=== PATIENT | male | born 1985 | race African-American/Black ===

== ENCOUNTER 2019-06-20 10:41 | Emergency (ER) | payer MEDICAID, OTHER ==
[~2019-06-20] VITALS: Ht 193 cm; Wt 119.3 kg
[2019-06-20 10:44] VITALS: BP 163/116
[2019-06-20] MEDS ORDERED: KETOROLAC TROMETH 60MG/2ML VIAL IM ONE (11:15)
[2019-06-20] MEDS ORDERED: methylPREDNISolone SOD SUCC 125 MG/2 ML VL IM ONE (11:15)
== END 2019-06-20 12:16 | disposition home or self-care (01) ==
LOC: ER 10:41
DX: M10.042 Idiopathic gout, left hand (principal)
CPT/HCPCS: 96372; 99283; J1885; J2930

== ENCOUNTER 2025-04-01 15:02 | Inpatient (IN) | payer MEDICAID, OTHER ==
[~2025-04-01] VITALS: Ht 180.3 cm; Wt 134.9 kg
--- NOTE | 2025-04-01 16:05 | ED.PDOC ---
History of Present Illness HPI Comments A 39-YEAR-OLD MALE ARRIVED TO THE ER WITH MULTIPLE COMPLAINTS. PATIENT IS COMPLAINING OF DRY MOUTH, UNABLE TO SMELL OR TASTE, UNABLE TO GET AN ERECTION, DIZZINESS, URINARY FREQUENCY, URGENCY AND DIARRHEA. PATIENT STATES THAT THESE SYMPTOMS STARTED ON Sunday03/27/2025 AFTER COMPLETION OF DEXAMETHASONE. HE TOOK 10 DAYS OF THE STEROID MEDICATION DUE TO HIS LEFT KNEE PAIN AND SWELLING. PATIENT DENIES FEVER, SOB, CHEST PAIN, NAUSEA, VOMITING, HEADACHE AND OTHER COMPLAINTS. NO OTHER SYMPTOMS REPORTED AT THIS TIME OF CARE. Chief Complaint: Medical Clearance Time Seen by MD: 15:53 Primary Care Provider: NONE Reviewed Notes: Nurses Notes, Medications, Allergies Allergies: Coded Allergies: Lisinopril (Verified Allergy, Severe, 04/01/25) Home Meds Reported Medications Atenolol (Atenolol) 25 Mg Tab, 1 TAB PO DAILY, #30 TAB 5 Refills 04/02/25 Amlodipine Besylate (Amlodipine Besylate) 10 Mg Tab, 1 TAB PO DAILY, #30 TAB 5 Refills 04/02/25 Information Source: Patient Mode of Arrival: Ambulatory Severity: Moderate Timing: Days Duration: Since onset Prehospital treatment: None Medication Refill: For: Other (DIZZINESS, DRY MOUTH, URINARY FREQUENCY AND URGENCY POST STEROID TAKING ) Past Medical History PAST MEDICAL HISTORY: Gout, HTN Surgical History: Denies all surgeries Family History Family History: Reviewed,noncontributory to illness Social History Smoker: Non-Smoker Alcohol: Denies ETOH Use Drugs: Denies Drug Use Lives In: Home Constitutional: reports: fatigue; denies: chills, diaphoresis, fever, malaise, sweats, weakness, others EENTM: reports: others (DRY MOUTH AND THIRTY ); denies: blurred vision, double vision, ear bleeding, ear discharge, ear drainage, ear pain, ear ringing, eye pain, eye redness, hearing loss, mouth pain, nasal discharge, nose bleeding, nose congestion, nose pain, photophobia, tearing, throat pain, throat swelling, voice changes Respiratory: denies: cough, hemoptysis, orthopnea, SOB at rest, shortness of breath, SOB with excertion, stridor, wheezing, others Cardiovascular: denies: chest pain, dizzy spells, diaphoresis, Dyspnea on exertion, edema, irregular heart beat, left arm pain, lightheadedness, palpitations, PND, syncope, others Gastrointestinal: denies: abdomen distended, abdominal pain, blood streaked bowels, constipated, diarrhea, dysphagia, difficulty swallowing, hematemesis, melena, nausea, poor appetite, poor fluid intake, rectal bleeding, rectal pain, vomiting, others Genitourinary: reports: frequency, urgency; denies: burning, dysuria, flank pain, hematuria, incontinence, penile discharge, penile sore, pain, testicle pain, testicle swelling, others Neurological: reports: dizziness; denies: fainting, headache, left sided numbness, left sided weakness, numbness, paresthesia, pre-existing deficit, right sided numbness, right sided weakness, seizure, speech problems, tingling, tremors, weakness, others Musculoskeletal: denies: back pain, gout, joint pain, joint swelling, muscle pain, muscle stiffness, neck pain, others Integumetry: denies: bruises, change in color, change in hair/nails, dryness, laceration, lesions, lumps, rash, wounds, others Allergic/Immunocompromised: denies: Difficulty Healing, Frequent Infections, Hives, Itching, others Hematologic/Lymphatic: denies: anemia, blood clots, easy bleeding, easy bruisin g, swollen glands, others Endocrine: denies: excessive hunger, excessive sweating, excessive thirst, excessive urination, flushing, intolerance to cold, intolerance to heat, unexplained weight gain, unexplained weight loss, others Psychiatric: denies: anxiety, bipolar disorder, depression, hopeless, panic disorder, schizophrenia, sleepless, suicidal, others All Other Systems: Reviewed and Negative Physical Exam General Appearance: No Apparent Distress, Obese HEENT: Normal ENT Inspection, PERRL/EOMI, Pharynx Normal, TMs Normal Neck: Full Range of Motion, Non-Tender, Normal, Normal Inspection Respiratory: Chest Non-Tender, Lungs Clear, No Accessory Muscle Use, No Respiratory Distress, Normal Breath Sounds Cardiovascular: No Edema, No JVD, No Murmur, No Gallop, Normal Peripheral Pulses, Regular Rate/Rhythm Breast Exam: Deferred Gastrointestinal: No Organomegaly, Non Tender, No Pulsatile Mass, Normal Bowel Sounds, Soft Genitalia: Deferred Pelvic: Deferred Rectal: Deferred Extremities: No calf tenderness, Normal capillary refill, Normal inspection, Normal range of motion, Non-tender, No pedal edema Musculoskeletal : Apperance: Normal Neurologic: Alert, wellness educator II-XII nml as Tested, No Motor Deficits, Normal Affect, Normal Mood, No Sensory Deficits Cerebellar Function: Normal Reflexes: Normal Skin: Dry, Normal Color, Warm Peripheral Pulses: 2+ carotid (R), 2+ carotid (L) Lymphatic: No Adenopathy Was a procedure done? Was a procedure done?: No Differential Dx Considerations may include: HYPERGLYCEMIA, UTI, NEW ONSET DM, ELECTROLYTE IMBALANCE, DEHYDRATION, RENAL INSUFFICIENCY, CKD/CKF, ALLERGIC REACTION, SIDE EFFECT OF MEDICATION X-Ray, Labs, Meds, VS Vital Signs Date Time Temp Pulse Resp B/P (MAP) Pulse Ox O2 Delivery O2 Flow Rate FiO2 04/01/25 18:25 158/113 04/01/25 16:30 87 18 98 Room Air 04/01/25 16:30 87 18 155/103 (120) 98 04/01/25 15:07 98.0 93 13 148/100 95 98.0 Lab Test 04/01/25 17:40 04/01/25 17:00 04/01/25 16:25 04/01/25 16:03 Range/Units POC Glucose 457 *H 535 *H 70-106 mg/dl White Blood Count 7.0 4.4-10.8 10^3/uL Red Blood Count 5.67 4.5-5.90 10^6/uL Hemoglobin 17.4 13.5-17.5 g/dL Hematocrit 49.3 41.0-53.0 % Mean Corpuscular Volume 86.9 80.0-100.0 fL Mean Corpuscular Hemoglobin 30.6 28.0-32.0 pg Mean Corpuscular Hemoglobin Concent 35.2 32.0-36.0 g/dL Red Cell Distribution Width 13.0 11.8-14.3 % Platelet Count 297 140-450 10^3/uL Mean Platelet Volume 10.2 6.9-10.8 fL Neutrophils (%) (Auto) 56.4 37.0-80.0 % Lymphocytes (%) (Auto) 33.3 10.0-50.0 % Monocytes (%) (Auto) 6.9 0.0-12.0 % Eosinophils (%) (Auto) 2.6 0.0-7.0 % Basophils (%) (Auto) 0.8 0.0-2.0 % Neutrophils # (Auto) 3.9 1.6-8.6 10 ^3/uL Lymphocytes # (Auto) 2.3 0.4-5.4 10 ^3/uL Monocytes # (Auto) 0.5 0-1.3 10 ^3/uL Eosinophils # (Auto) 0.2 0-0.8 10 ^3/uL Basophils # (Auto) 0.1 0-0.2 10 ^3/uL Nucleated Red Blood Cells 0.2 % Sodium Level 133 L 136-145 mmol/L Potassium Level 4.6 3.5-5.1 mmol/L Chloride Level 98 98-107 mmol/L Carbon Dioxide Level 21 20-31 mmol/L Anion Gap 14 5-15 Blood Urea Nitrogen 31 H 9-23 mg/dL Creatinine 1.81 H 0.700-1.30 mg/dL Glomerular Filtration Rate Calc 48 >90 mL/min BUN/Creatinine Ratio 17.1 10.0-20.0 Serum Glucose 544 *H 74-106 mg/dL Hemoglobin A1c 11.0 H <5.7 % A1C Calcium Level 10.5 H 8.7-10.4 mg/dL Plasma/Serum Blood Alcohol < 3.0 <10 mg/dL Urine Color Light-yellow Yellow Urine Clarity Clear Clear Urine pH 5.5 5.0-9.0 Urine Specific [place] 1.035 1.001-1.035 Urine Protein 1+ H Negative Urine Ketones 1+ H Negative Urine Blood Negative Negative /uL Urine Nitrite Negative Negative Urine Bilirubin Negative Negative Urine Urobilinogen Normal Negative mg/dL Urine Leukocyte Esterase Negative Negative /uL Urine RBC <1 0 - 3 /hpf Urine Microscopic WBC 1 0-3 /HPF Urine Squamous Epithelial Cells None seen <5 /hpf Urine Bacteria None seen None Seen /hpf Urine Hyaline Casts Few 0 - 2 /lpf Urine Granular Casts Few 0 /lpf Urine Mucus Few None Seen Urine Glucose 4+ H Normal mg/dL Urine Opiates Screen Neg NEGATIVE Urine Fentanyl Screen Neg NEGATIVE Urine Barbiturates Screen Neg NEGATIVE Urine Phencyclidine Screen Neg NEGATIVE Urine Amphetamines Screen Neg NEGATIVE Urine Benzodiazepines Screen Neg NEGATIVE Urine Cocaine Screen Neg NEGATIVE Urine Cannabinoids Screen Neg NEGATIVE Current Medications Medications (Trade) Dose Ordered Sig/Roman Route Start Time Stop Time Status Last Admin Sodium Chloride 2,000 ml @ 1,000 mls/hr Q2H ONCE IV 04/01/25 17:15 04/01/25 19:14 DC 04/01/25 17:34 Insulin Human Regular (InsuLIN R) 10 units ONCE ONCE IV 04/01/25 17:30 04/01/25 17:31 DC 04/01/25 17:44 Amlodipine Besylate (Norvasc Tablet) 10 mg ONCE ONCE PO 04/01/25 18:15 04/01/25 18:16 DC 04/01/25 18:25 X-Ray, Labs, Meds, VS Comment EXTERNAL MEDICAL RECORDS REVIEWED: [NONE] INDEPENDENT HISTORIANS: [NONE] SOCIAL DETERMINANTS OF HEALTH: [NONE] LABS ORDERED: CBC, BMP, URINALYSIS REVIEWED AND INTERPRETED RESULTS: GLUC 363, UGLU 4+ IMAGING ORDERED: NONE TREATMENTS ORDERED: 0.9 NS 2LS, INSULIN 10 UNITS IVP, AMLODIPINE 10MG PO PROCEDURES PERFORMED: NONE CRITICAL CARE TIME: NONE I HAVE DISCUSSED THE PATIENT WITH THE ATTENDING PHYSICIAN DR. FITZPATRICK AND HE AGREES WITH THE PATIENT'S PLAN OF CARE AND DISPOSITION. UPON MY PHYSICAL EXAMINATION, THE PATIENT WAS WELL IN APPEARANCE, BUT STATED HE HAD MULTIPLE COMPLAINTS. LABS WERE FOR THE PATIENT WHICH REVEALED HIS GLUCOSE IS 363 CONSISTENT WITH NEW ONSET DIABETES. DUE TO THE PATIENT'S LAB RESULTS, MEDICAL HISTORY, AND COMPLAINTS, I HAVE DETERMINED THE PATIENT NEEDS TO BE ADMITTED FOR FURTHER TREATMENT AND EVALUATION. THE ON-CALL HOSPITALIST WILL BE CONTACTED FOR ADMISSION OF THIS PATIENT. Time of 1ST Reevaluation: 16:23 Reevaluation 1ST: Unchanged Time of 2ND Reevaluation: 18:04 Reevaluation 2ND: Unchanged Patient Education/Counseling: Diagnosis, Treatment Family Education/Counseling: Diagnosis, Treatment SEPSIS Sepsis Screen Date sepsis recognized/suspect: Apr 01, 2025 Time Sepsis recognized/suspect: 1507 Recent Procedure: No On Antibiotic Therapy: No Respiratory Rate >20: No Heart Rate >90: Yes Temp<36 C (96.8 F) or >38.3 C: No SBP <90 or MAP <65 mmHG: No New Acute Mental Status Change: No Is the patient on CPAP, BIPAP,: No Physician Orders Accucheck (04/01/25 17:00) Heplock Iv (04/01/25 ) Vital Signs Date Time Temp Pulse Resp B/P (MAP) Pulse Ox O2 Delivery O2 Flow Rate FiO2 04/01/25 18:25 158/113 8/13/25 16:30 87 18 98 Room Air 04/01/25 16:30 87 18 155/103 (120) 98 04/01/25 15:07 98.0 93 13 148/100 95 98.0 Laboratory Tests Test 04/01/25 16:25 White Blood Count 7.0 10^3/uL (4.4-10.8) Departure 1 Departure Time of Disposition: 18:04 Impression: Primary Impression: New onset type 2 diabetes mellitus Additional Impression: Chronic kidney disease (CKD) Qualified Codes: N18.31 - Chronic kidney disease, stage 3a Disposition: ADMITTED INPATIENT Condition: Serious Discharged With: Self Critical Care Note Critical Care Time?: No Stability Stability form required: Yes Unstable for transfer: Requires medication, ED Physician Assesment, Possible rapid decline Heart Score Heart Score: Heart Score Response (Comments) Value History N/A 0 EKG N/A 0 Age N/A 0 Risk Factors N/A 0 Troponin N/A 0 Total 0 I personally scribed for JR,YINXIA PA ([email or web address]) on 04/01/25 at 16:05. Electronically submitted by Vincent An ([email or web address]). I personally scribed for JR,YINXIA PA ([email or web address]) on 04/01/25 at 16:11. Electronically submitted by Vincetn An ([email or web address]). I personally scribed for JR,YINXIA PA ([email or web address]) on 04/01/25 at 16:57. Electronically submitted by Vincent An ([email or web address]). I personally scribed for JR,YINXIA PA ([email or web address]) on 04/01/25 at 17:03. Electronically submitted by Vincent An ([email or web address]). I personally scribed for JR,YINXIA PA ([email or web address]) on 04/01/25 at 17:19. Electronically submitted by Vincent An ([email or web address]). I personally scribed for JR,YINXIA PA ([email or web address]) on 04/01/25 at 17:20. Electronically submitted by Vincent An ([email or web address]). I personally scribed for JAMIL FITZPATRICK MD ([email or web address]) on 04/02/25 at 06:45. Electronically submitted by Shubham Villalobos ([email or web address]). SHOSHANA NORRIS Apr 01, 2025 16:05 JAMIL FITZPATRICK MD Apr 02, 2025 06:45
[2025-04-01 16:21] LABS: Urine Protein, UAD 1+ (Negative)
[2025-04-01 16:35] LABS: Amphetamine Screen, Urine Neg (NEGATIVE); Barbiturate Scree,Urine Neg (NEGATIVE); Benzodiazephine Screen, Urine Neg (NEGATIVE); Cannabinoid Screen, Urine Neg (NEGATIVE); Cocaine Screen, Urine Neg (NEGATIVE); Opiate Scree,Urine Neg (NEGATIVE); Phencyclidine Screen, Urine Neg (NEGATIVE)
[2025-04-01 16:49] LABS: Hematocrit 49.3 % (41.0-53.0); Hemoglobin 17.4 g/dL (13.5-17.5); Mean Corpuscular Hemoglobin 30.6 pg (28.0-32.0); Mean Corpuscular Volume 86.9 fL (80.0-100.0); Nucleated Red Blood Cells % 0.2 %
[2025-04-01 16:55] LABS: Carbon Dioxide 21 mmol/L (20-31)
[2025-04-01 16:56] LABS: Anion Gap 14 (5-15)
[2025-04-01 17:02] LABS: BUN/Creatinine Ratio 17.1 (10.0-20.0)
[2025-04-01 17:08] LABS: Blood Urea Nitrogen 31 mg/dL (9-23); Calcium 10.5 mg/dL (8.7-10.4); Chloride 98 mmol/L (98-107); Potassium 4.6 mmol/L (3.5-5.1); Sodium 133 mmol/L (136-145)
[2025-04-01 17:09] LABS: Glucose 544 mg/dL (74-106)
[2025-04-01] MEDS: SODIUM CHLORIDE 0.9% 2,000 ML IV ONE (17:34)
[2025-04-01] MEDS: InsuLIN REG 1unit/0.01ml Soln (100units/ml) IV ONE (17:44)
[2025-04-01] MEDS ORDERED: ONDANSETRON HCL 4 MG/2 ML VIAL IV PRN (19:45)
[2025-04-01] MEDS ORDERED: DEXTROSE (50%) 50ML SYRG IV PRN (19:45)
[2025-04-01] MEDS ORDERED: ACETAMINOPHEN 325 MG TAB PO PRN (19:45)
[2025-04-01] MEDS ORDERED: HYDROcodone-ACET 5/325MG TAB PO PRN (19:45)
[2025-04-01] MEDS ORDERED: TEMAZEPAM 15 MG CAP PO PRN (22:00)
[2025-04-01] MEDS: ACCU-CHEK COMFORT CURVE STRIP VI SCH (22:01)
[2025-04-01] MEDS: InsuLIN REG 1unit/0.01ml Soln (100units/ml) SC SCH (22:02)
[2025-04-01] MEDS: ATORVASTATIN 20 MG TAB PO SCH (22:04)
[2025-04-01] MEDS: CARVEDILOL 12.5 MG TAB PO SCH (22:05)
--- NOTE | 2025-04-01 22:15 | DVHHP2 ---
History of Present Illness Reason for Visit: Urinary frequency History of Present Illness 39-year-old male presents for evaluation of urinary frequency. Patient reports a three day history of symptoms including urinary frequency, urgency, diarrhea, nausea. He states the symptoms started a day after he completed a treatment of dexamethasone for his left knee swelling. He denies history of diabetes mellitus. Past Medical History Hypertension, gout, dyslipidemia Past Surgical History Denies Family History Noncontributory Smoke: No ALCOHOL: none Drugs: None Lives: with Family Review of Systems Review of Systems Review of systems are currently negative otherwise addressed in HPI. Allergies: Coded Allergies: Lisinopril (Verified Allergy, Severe, 04/01/25) Medications Current Medications Medications Dose Ordered Sig/Roman Route Start Time Stop Time Status Last Admin Dose Admin Carvedilol 25 mg Q12HR PO 04/01/25 22:00 04/01/25 22:05 25 MG Losartan Potassium 100 mg DAILY PO 04/02/25 10:00 Allopurinol 100 mg DAILY PO 04/02/25 10:00 Atorvastatin Calcium 20 mg HS PO 04/01/25 22:00 04/01/25 22:04 20 MG Hydrochlorothiazide 25 mg DAILY PO 04/02/25 10:00 Diagnostic Test (Pha) 1 strip IQ4HR 04/01/25 20:00 04/01/25 22:01 1 STRIP Insulin Human Regular IQ4HR SC 04/01/25 20:00 04/01/25 22:02 10 UNITS Dextrose 50 ml UD PRN IV 04/01/25 19:45 Acetaminophen/ Hydrocodone Bitart 1 tab Q4HP PRN PO 04/01/25 19:45 Temazepam 15 mg QHSP PRN PO 04/01/25 22:00 Ondansetron HCl 4 mg Q4HP PRN IV 04/01/25 19:45 Acetaminophen 650 mg Q6HP PRN PO 04/01/25 19:45 Exam Vital Signs Vital Signs Date Time Temp Pulse Resp B/P (MAP) Pulse Ox O2 Delivery O2 Flow Rate FiO2 04/01/25 22:05 94 139/103 04/01/25 21:55 18 96 04/01/25 16:30 Room Air 04/01/25 15:07 98.0 98.0 Exam Gen: 39-year-old male in no apparent distress Skin: Warm, dry, normal color and texture, no rash. HEENT: Normocephalic atraumatic, mucous membranes moist and pink. Neck: Cervical and supraclavicular nodes normal without enlargement, trachea is midline, thyroid gland is normal without masses. Pulmonary: Clear to auscultation and percussion bilaterally. Cardiac: Regular rate and rhythm. No murmur Abdomen: Soft, nontender, nondistended, bowel sounds present all 4 quadrants, no guarding, no rigidity, no organomegaly. Extremities: No cyanosis, clubbing, no edema Neuro: Cranial nerves II through XII grossly intact, normal affect and speech, no focal motor deficits. Labs/Xrays Labs Test 04/01/25 21:53 04/01/25 16:25 04/01/25 16:03 Range/Units POC Glucose 363 H 70-106 mg/dl White Blood Count 7.0 4.4-10.8 10^3/uL Red Blood Count 5.67 4.5-5.90 10^6/uL Hemoglobin 17.4 13.5-17.5 g/dL Hematocrit 49.3 41.0-53.0 % Mean Corpuscular Volume 86.9 80.0-100.0 fL Mean Corpuscular Hemoglobin 30.6 28.0-32.0 pg Mean Corpuscular Hemoglobin Concent 35.2 32.0-36.0 g/dL Red Cell Distribution Width 13.0 11.8-14.3 % Platelet Count 297 140-450 10^3/uL Mean Platelet Volume 10.2 6.9-10.8 fL Neutrophils (%) (Auto) 56.4 37.0-80.0 % Lymphocytes (%) (Auto) 33.3 10.0-50.0 % Monocytes (%) (Auto) 6.9 0.0-12.0 % Eosinophils (%) (Auto) 2.6 0.0-7.0 % Basophils (%) (Auto) 0.8 0.0-2.0 % Neutrophils # (Auto) 3.9 1.6-8.6 10 ^3/uL Lymphocytes # (Auto) 2.3 0.4-5.4 10 ^3/uL Monocytes # (Auto) 0.5 0-1.3 10 ^3/uL Eosinophils # (Auto) 0.2 0-0.8 10 ^3/uL Basophils # (Auto) 0.1 0-0.2 10 ^3/uL Nucleated Red Blood Cells 0.2 % Sodium Level 133 L 136-145 mmol/L Potassium Level 4.6 3.5-5.1 mmol/L Chloride Level 98 98-107 mmol/L Carbon Dioxide Level 21 20-31 mmol/L Anion Gap 14 5-15 Blood Urea Nitrogen 31 H 9-23 mg/dL Creatinine 1.81 H 0.700-1.30 mg/dL Glomerular Filtration Rate Calc 48 >90 mL/min BUN/Creatinine Ratio 17.1 10.0-20.0 Serum Glucose 544 *H 74-106 mg/dL Hemoglobin A1c 11.0 H <5.7 % A1C Calcium Level 10.5 H 8.7-10.4 mg/dL Plasma/Serum Blood Alcohol < 3.0 <10 mg/dL Urine Color Light-yellow Yellow Urine Clarity Clear Clear Urine pH 5.5 5.0-9.0 Urine Specific [place] 1.035 1.001-1.035 Urine Protein 1+ H Negative Urine Ketones 1+ H Negative Urine Blood Negative Negative /uL Urine Nitrite Negative Negative Urine Bilirubin Negative Negative Urine Urobilinogen Normal Negative mg/dL Urine Leukocyte Esterase Negative Negative /uL Urine RBC <1 0 - 3 /hpf Urine Microscopic WBC 1 0-3 /HPF Urine Squamous Epithelial Cells None seen <5 /hpf Urine Bacteria None seen None Seen /hpf Urine Hyaline Casts Few 0 - 2 /lpf Urine Granular Casts Few 0 /lpf Urine Mucus Few None Seen Urine Glucose 4+ H Normal mg/dL Urine Opiates Screen Neg NEGATIVE Urine Fentanyl Screen Neg NEGATIVE Urine Barbiturates Screen Neg NEGATIVE Urine Phencyclidine Screen Neg NEGATIVE Urine Amphetamines Screen Neg NEGATIVE Urine Benzodiazepines Screen Neg NEGATIVE Urine Cocaine Screen Neg NEGATIVE Urine Cannabinoids Screen Neg NEGATIVE SEPSIS Sepsis Screen Date sepsis recognized/suspect: Apr 01, 2025 Time Sepsis recognized/suspect: 1507 Recent Procedure: No On Antibiotic Therapy: No Respiratory Rate >20: No Heart Rate >90: Yes Temp<36 C (96.8 F) or >38.3 C: No SBP <90 or MAP <65 mmHG: No New Acute Mental Status Change: No Is the patient on CPAP, BIPAP,: No Physician Orders Accucheck (04/01/25 17:00) Heplock Iv (04/01/25 ) Carvedilol Tablet (Coreg Tablet) (04/01/25 22:00) Losartan Tablet (Cozaar Tablet) (04/02/25 10:00) Allopurinol Tablet (Zyloprim Tablet) (04/02/25 10:00) Atorvastatin (Lipitor) (04/01/25 22:00) Hydrochlorothiazide Tablet (Hydrochlorot (04/02/25 10:00) Basic Metabolic Panel (04/02/25 04:00) Glucose Blood (Accu-Chek Comfort Curve T (04/01/25 20:00) Insulin R (Human) (Insulin R) (04/01/25 20:00) Dextrose 50% Syringe (04/01/25 19:45) Admit (04/01/25 19:33) Hydrocodone-Acet 5/325mg Tab ([place] 5/32 (04/01/25 19:45) Temazepam (Restoril) (04/01/25 22:00) Ondansetron Hcl (Zofran) (04/01/25 19:45) Cardiac Diet-2gna,Lofat,Lochol (04/02/25 Breakfast) Condition: Stable (04/01/25 19:33) Acetaminophen Tablet (Tylenol Tablet) (04/01/25 19:45) Bedrest With Bathroom Privileg (04/01/25 19:33) *Rn Dyehouse Worker Referral (04/01/25 19:33) Vital Signs Date Time Temp Pulse Resp B/P (MAP) Pulse Ox O2 Delivery O2 Flow Rate FiO2 04/01/25 22:05 94 139/103 04/01/25 21:55 91 18 139/103 (115) 96 04/01/25 20:14 84 14 143/84 (103) 98 04/01/25 18:25 158/113 04/01/25 16:30 87 18 98 Room Air 04/01/25 16:30 87 18 155/103 (120) 98 04/01/25 15:07 98.0 93 13 148/100 95 98.0 Laboratory Tests Test 04/01/25 16:25 White Blood Count 7.0 10^3/uL (4.4-10.8) Medications Medications Dose Ordered Sig/Roman Route Start Time Stop Time Status Last Admin Dose Admin Amlodipine Besylate 10 mg ONCE ONCE PO 04/01/25 18:15 04/01/25 18:16 DC 04/01/25 18:25 10 MG Atorvastatin Calcium 20 mg HS PO 04/01/25 22:00 04/01/25 22:04 20 MG Carvedilol 25 mg Q12HR PO 04/01/25 22:00 04/01/25 22:05 25 MG Diagnostic Test (Pha) 1 strip IQ4HR 04/01/25 20:00 04/01/25 22:01 1 STRIP Insulin Human Regular IQ4HR SC 04/01/25 20:00 04/01/25 22:02 10 UNITS Insulin Human Regular 10 units ONCE ONCE IV 04/01/25 17:30 04/01/25 17:31 DC 04/01/25 17:44 10 UNITS Sodium Chloride 2,000 ml @ 1,000 mls/hr Q2H ONCE IV 04/01/25 17:15 04/01/25 19:14 DC 04/01/25 17:34 1,000 MLS/HR Assessment/Plan Assessment/Plan Assessment New onset diabetes mellitus, possibly dexamethasone induced Acute kidney injury Hypertension Plan Admit the patient to [facility] [place] to the hospitalist Q.4 hour Accu-Cheks with mild coverage Resume home medications Continue treatment per orders. Plan discussed with: Patient My Orders Orders - DENISE BUENO Procedure Category Date Status Time Carvedilol Tablet PHA 04/01/25 In Process (Coreg Tablet) 22:00 Losartan Tablet PHA 04/02/25 In Process (Cozaar Tablet) 10:00 Allopurinol Tablet PHA 04/02/25 In Process (Zyloprim Tablet) 10:00 Atorvastatin (Lipitor) PHA 04/01/25 In Process 22:00 Hydrochlorothiazide PHA 04/02/25 In Process Tablet (Hydrochlorot 10:00 Basic Metabolic Panel LAB 04/02/25 Verified 04:00 Glucose Blood PHA 04/01/25 In Process (Accu-Chek Comfort 20:00 Insulin R (Human) PHA 04/01/25 In Process (Insulin R) 20:00 Dextrose 50% Syringe PHA 04/01/25 In Process 19:45 Admit ADMIT 04/01/25 Transmitted 19:33 Hydrocodone-Acet PHA 04/01/25 In Process 5/325mg Tab ([place] 19:45 Temazepam (Restoril) PHA 04/01/25 In Process 22:00 Ondansetron Hcl PHA 04/01/25 In Process (Zofran) 19:45 Cardiac DIET 04/02/25 Transmitted Diet-2gna,Lofat,Lochol Breakfast Condition: Stable DEANGELO 04/01/25 In Process 19:33 Acetaminophen Tablet PHA 04/01/25 In Process (Tylenol Tablet) 19:45 Bedrest With Bathroom DEANGELO 04/01/25 In Process Privileg 19:33 *Rn Dyehouse Worker REFER 04/01/25 Transmitted Referral 19:33 Date of Service: Apr 01, 2025 Billing Provider: DENISE BUENO Common Visit Codes: [id number] INP/OBS CARE (MOD) DENISE BUENO Apr 01, 2025 22:14
[2025-04-01 23:42] VITALS: O2SAT 98
[2025-04-02] VITALS (11 sets, daily range): BP systolic 126–142; BP diastolic 72–101; PULSE 76–102; RESP 16–20; TEMP 97.5–98.3; O2SAT 94–100
[2025-04-02] MEDS: InsuLIN REG 1unit/0.01ml Soln (100units/ml) SC SCH (02:03)
[2025-04-02] MEDS: ACCU-CHEK COMFORT CURVE STRIP VI SCH (02:05)
[2025-04-02] MEDS ORDERED: ATEN-60 PO (03:56)
[2025-04-02] MEDS ORDERED: AMLO1TAB23 PO (03:56)
[2025-04-02 06:16] LABS: Chloride 103 mmol/L (98-107); Potassium 3.8 mmol/L (3.5-5.1)
[2025-04-02 06:17] LABS: Anion Gap 13 (5-15); Calcium 9.5 mg/dL (8.7-10.4)
[2025-04-02 06:22] LABS: BUN/Creatinine Ratio 18.3 (10.0-20.0); Blood Urea Nitrogen 22 mg/dL (9-23)
[2025-04-02 06:24] LABS: Carbon Dioxide 20 mmol/L (20-31); Glucose 327 mg/dL (74-106); Sodium 136 mmol/L (136-145)
[2025-04-02] MEDS: LOSARTAN POTASSIUM 50 MG TAB PO SCH (09:37)
[2025-04-02] MEDS: hydroCHLOROthiazide 25 MG TAB PO SCH (09:37)
[2025-04-02] MEDS: ALLOPURINOL 100 MG TAB PO SCH (09:37)
[2025-04-02] MEDS: INSULIN LANTUS (GLARGINE) 1 /0.01ml (100units/ml) SC SCH (14:49)
--- NOTE | 2025-04-02 15:58 | DVHPN2 ---
Subjective Patient was seen and evaluated by me. Patient was taken dexamethasone 6 mg twice a day for left knee swelling which is resolved. Patient is started having urinary symptoms including increased N/C increasing thirst and increasing hunger found to have new onset of diabetes mellitus type 2. 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 no motor deficit Medications Current Medications Medications Dose Ordered Sig/Roman Route Start Time Stop Time Status Last Admin Dose Admin Carvedilol 25 mg Q12HR PO 04/01/25 22:00 04/02/25 09:38 25 MG Losartan Potassium 100 mg DAILY PO 04/02/25 10:00 04/02/25 09:37 100 MG Allopurinol 100 mg DAILY PO 04/02/25 10:00 04/02/25 09:37 100 MG Atorvastatin Calcium 20 mg HS PO 04/01/25 22:00 04/01/25 22:04 20 MG Hydrochlorothiazide 25 mg DAILY PO 04/02/25 10:00 04/02/25 09:37 25 MG Dextrose 50 ml UD PRN IV 04/01/25 19:45 Acetaminophen/ Hydrocodone Bitart 1 tab Q4HP PRN PO 04/01/25 19:45 Temazepam 15 mg QHSP PRN PO 04/01/25 22:00 Ondansetron HCl 4 mg Q4HP PRN IV 04/01/25 19:45 Acetaminophen 650 mg Q6HP PRN PO 04/01/25 19:45 Diagnostic Test (Pha) 1 strip Q4H 04/02/25 02:00 04/02/25 14:25 1 STRIP Insulin Human Regular Q4H SC 04/02/25 02:00 04/02/25 14:27 6 UNITS Insulin Glargine 20 units BID@0700,2200 SC 04/02/25 12:30 04/02/25 14:49 20 UNITS Laboratory Results Laboratory Tests 04/01/25 16:25 04/02/25 05:28 Chemistry Test 04/01/25 16:25 04/02/25 05:28 Calcium Level 10.5 mg/dL (8.7-10.4) H 9.5 mg/dL (8.7-10.4) HgA1c, TSH Test 04/01/25 16:25 Hemoglobin A1c 11.0 % A1C (<5.7) H Urinalysis Test 04/01/25 16:03 Urine Color Light-yellow (Yellow) Urine Clarity Clear (Clear) Urine pH 5.5 (5.0-9.0) Urine Specific [place] 1.035 (1.001-1.035) Urine Protein 1+ (Negative) H Urine Ketones 1+ (Negative) H Urine Blood Negative /uL (Negative) Urine Nitrite Negative (Negative) Urine Bilirubin Negative (Negative) Urine Urobilinogen Normal mg/dL (Negative) Urine Leukocyte Esterase Negative /uL (Negative) Urine RBC <1 /hpf (0 - 3) Urine Microscopic WBC 1 /HPF (0-3) Urine Squamous Epithelial Cells None seen /hpf (<5) Urine Bacteria None seen /hpf (None Seen) Urine Hyaline Casts Few /lpf (0 - 2) Urine Granular Casts Few /lpf (0) Urine Mucus Few (None Seen) Urine Glucose 4+ mg/dL (Normal) H Assessment/Plan Assessment/Plan 39-year-old male with a past medical history history of hypertension dyslipidemia and gout presented to the hospital with the increasing urinary frequency, increased thirst increased hunger found to have 1. New onset of diabetes mellitus type 2 with a hemoglobin A1c>11. 2. Hypertension 3. Dyslipidemia 4. History of gout 5. Recent history of left knee trauma / swelling was on dexamethasone -diabetic education, insulin sliding scale, start long-acting insulin -discharge plan in next 24 hours. Plan discussed with: Patient My Orders Orders - LULU CONTRERAS MD Procedure Category Date Status Time Insulin Lantus PHA 04/02/25 In Process (Glargine) (Lantus) 12:30 Date of Service: Apr 02, 2025 Billing Provider: LULU CONTRERAS MD Common Visit Codes: [id number] INP/OBS CARE(MOD) LULU CONTRERAS MD Apr 02, 2025 15:58
[2025-04-03 05:00] VITALS: BP 119/79; PULSE 72; RESP 20; TEMP 97.6; O2SAT 99
[2025-04-03 08:00] VITALS: RESP 18
[2025-04-03 09:00] VITALS: BP 136/105; PULSE 73; RESP 16; TEMP 97.3; O2SAT 99
[2025-04-03 13:00] VITALS: BP 115/82; PULSE 66; RESP 18; TEMP 98; O2SAT 99
[2025-04-03] MEDS ORDERED: LOSA-534 PO (14:04)
[2025-04-03] MEDS ORDERED: LANC-347 XX (14:04)
[2025-04-03] MEDS ORDERED: BLOO1KIT60 XX (14:04)
[2025-04-03] MEDS ORDERED: HYDR25TA5 PO (14:04)
[2025-04-03] MEDS ORDERED: INSLANTI SC (14:04)
[2025-04-03] MEDS ORDERED: METF-370 PO (14:04)
[2025-04-03] MEDS ORDERED: SITA50TA PO (14:04)
[2025-04-03] MEDS ORDERED: INSU-567 XX (14:04)
--- NOTE | 2025-04-03 14:07 | DVHDS2 ---
Discharge Summary Date of Admission Apr 01, 2025 at 19:33 Date of Discharge: Apr 03, 2025 Labs/Diagnostic Data: Laboratory Results Test 04/03/25 09:02 04/02/25 05:28 04/01/25 16:25 04/01/25 16:03 POC Glucose 280 mg/dl (70-106) Sodium Level 136 mmol/L (136-145) Potassium Level 3.8 mmol/L (3.5-5.1) Chloride Level 103 mmol/L (98-107) Carbon Dioxide Level 20 mmol/L (20-31) Anion Gap 13 (5-15) Blood Urea Nitrogen 22 mg/dL (9-23) Creatinine 1.20 mg/dL (0.700-1.30) Glomerular Filtration Rate Calc 78 mL/min (>90) BUN/Creatinine Ratio 18.3 (10.0-20.0) Serum Glucose 327 mg/dL (74-106) Calcium Level 9.5 mg/dL (8.7-10.4) White Blood Count 7.0 10^3/uL (4.4-10.8) Red Blood Count 5.67 10^6/uL (4.5-5.90) Hemoglobin 17.4 g/dL (13.5-17.5) Hematocrit 49.3 % (41.0-53.0) Mean Corpuscular Volume 86.9 fL (80.0-100.0) Mean Corpuscular Hemoglobin 30.6 pg (28.0-32.0) Mean Corpuscular Hemoglobin Concent 35.2 g/dL (32.0-36.0) Red Cell Distribution Width 13.0 % (11.8-14.3) Platelet Count 297 10^3/uL (140-450) Mean Platelet Volume 10.2 fL (6.9-10.8) Neutrophils (%) (Auto) 56.4 % (37.0-80.0) Lymphocytes (%) (Auto) 33.3 % (10.0-50.0) Monocytes (%) (Auto) 6.9 % (0.0-12.0) Eosinophils (%) (Auto) 2.6 % (0.0-7.0) Basophils (%) (Auto) 0.8 % (0.0-2.0) Neutrophils # (Auto) 3.9 10 ^3/uL (1.6-8.6) Lymphocytes # (Auto) 2.3 10 ^3/uL (0.4-5.4) Monocytes # (Auto) 0.5 10 ^3/uL (0-1.3) Eosinophils # (Auto) 0.2 10 ^3/uL (0-0.8) Basophils # (Auto) 0.1 10 ^3/uL (0-0.2) Nucleated Red Blood Cells 0.2 % Hemoglobin A1c 11.0 % A1C (<5.7) Plasma/Serum Blood Alcohol < 3.0 mg/dL (<10) Urine Color Light-yellow (Yellow) Urine Clarity Clear (Clear) Urine pH 5.5 (5.0-9.0) Urine Specific [place] 1.035 (1.001-1.035) Urine Protein 1+ (Negative) Urine Ketones 1+ (Negative) Urine Blood Negative /uL (Negative) Urine Nitrite Negative (Negative) Urine Bilirubin Negative (Negative) Urine Urobilinogen Normal mg/dL (Negative) Urine Leukocyte Esterase Negative /uL (Negative) Urine RBC <1 /hpf (0 - 3) Urine Microscopic WBC 1 /HPF (0-3) Urine Squamous Epithelial Cells None seen /hpf (<5) Urine Bacteria None seen /hpf (None Seen) Urine Hyaline Casts Few /lpf (0 - 2) Urine Granular Casts Few /lpf (0) Urine Mucus Few (None Seen) Urine Glucose 4+ mg/dL (Normal) Urine Opiates Screen Neg (NEGATIVE) Urine Fentanyl Screen Neg (NEGATIVE) Urine Barbiturates Screen Neg (NEGATIVE) Urine Phencyclidine Screen Neg (NEGATIVE) Urine Amphetamines Screen Neg (NEGATIVE) Urine Benzodiazepines Screen Neg (NEGATIVE) Urine Cocaine Screen Neg (NEGATIVE) Urine Cannabinoids Screen Neg (NEGATIVE) Other Laboratory Tests 04/02/25 05:28 04/01/25 16:25 Brief Hx & Hospital Course: 39-year-old male with a past medical history history of hypertension dyslipidemia and gout presented to the hospital with the increasing urinary frequency, increased thirst increased hunger found to have new onset of diabetes mellitus type 2 with a hemoglobin A1c more than 11. Patient was eventually started on insulin diabetic education was given. Patient is being discharged under stable condition with close follow up as an outpatient with the PCP. Condition at Discharge: Stable Final Diagnosis/Problems List 39-year-old male with a past medical history history of hypertension dyslipidemia and gout presented to the hospital with the increasing urinary frequency, increased thirst increased hunger found to have 1. New onset of diabetes mellitus type 2 with a hemoglobin A1c>11. 2. Hypertension 3. Dyslipidemia 4. History of gout 5. Recent history of left knee trauma / swelling was on dexamethasone Discharge Disposition: Home SNF Discharge Will this Physician continue t: No Discharge Instruct/Medications Diet: Cardiac 2g Na,low cholest Diet comment: 2000 ADA diet Activity: No Restrictions, As Tolerated Follow Up/Referral: Follow up with the PCP in one week's with a repeat BMP as patient is started on losartan and hydrochlorothiazide. Follow up with the endocrinology Dr. staton in 1-2 weeks - Medications: Insulin Lantus and Januvia as prescribed Hydrochlorothiazide, losartan New Medications: Blood Glucose Monitoring Suppl (D-Care Glucometer Kit/Glu W/Device) 1 Kit Kit KIT XX, #1 Insulin Syringe/Needle U-100 ([employer]ocate Insulin Syringe/) 0.5 Mg/31 G Mis MG XX BID, #60 Lancets (Freestyle Lancets) Lancets Mis BOX XX, #1 Metformin Hydrochloride (Metformin Hcl) 500 Mg Tab 1 TAB PO BID, #60 TAB 3 Refills Sitagliptin Phosphate (Januvia) 50 Mg Tab 1 TAB PO DAILY, #30 TAB 5 Refills Hctz (Hydrochlorothiazide) 25 Mg Tab 25 MG PO DAILY for 30 Days, #30 TAB Insulin Glargine (Lantus) 100 Unit/Ml Inj 20 UNITS SC BID@0700,2200 for 30 Days, #30 INJ Losartan Potassium (Losartan Potassium) 50 Mg Tab 100 MG PO DAILY for 30 Days, #60 TAB Continued Medications: Atenolol (Atenolol) 25 Mg Tab 1 TAB PO DAILY, #30 TAB 5 Refills Discontinued Medications: Amlodipine Besylate (Amlodipine Besylate) 10 Mg Tab 1 TAB PO DAILY, #30 TAB 5 Refills Scheduled Atenolol (Atenolol), 1 TAB PO DAILY, (Reported) Hctz (Hydrochlorothiazide), 25 MG PO DAILY Insulin Glargine (Lantus), 20 UNITS SC BID@0700,2200 Losartan Potassium (Losartan Potassium), 100 MG PO DAILY Metformin Hydrochloride (Metformin Hcl), 1 TAB PO BID Sitagliptin Phosphate (Januvia), 1 TAB PO DAILY Discontinued Medications Amlodipine Besylate (Amlodipine Besylate), 1 TAB PO DAILY, (Reported) Durable Medical Equipment Blood Glucose Monitoring Suppl (D-Care Glucometer Kit/Glu W/Device), KIT XX, (DME) Insulin Syringe/Needle U-100 ([employer] Insulin Syringe/), MG XX BID, (DME) Lancets (Freestyle Lancets), BOX XX, (DME) Discharge Statement: "Patient was advised to return to the ER or call 911 if any headaches, dizziness, shortness of breath, chest pain, abdominal pain, bleeding, fevers, or worsening of medical condition. Patient was counseled about treatment plan, medications, possible side effects, patientverbalized understanding. All questions were answered to the best of my ability. This discharge took greater then 30 minutes in planning, reviewing documentation, counseling the patient, and discussing with other team members." ASSESSMENT ASSESSMENT Assessment 39-year-old male with a past medical history history of hypertension dyslipidemia and gout presented to the hospital with the increasing urinary frequency, increased thirst increased hunger found to have 1. New onset of diabetes mellitus type 2 with a hemoglobin A1c>11. 2. Hypertension 3. Dyslipidemia 4. History of gout 5. Recent history of left knee trauma / swelling was on dexamethasone Date of Service: Apr 03, 2025 Billing Provider: LULU CONTRERAS MD Common Visit Codes: 19044-AJL/OBS DISCH DAY >30min LULU CONTRERAS MD Apr 03, 2025 14:07
[2025-04-03 16:40] VITALS: BP 128/84; PULSE 72; RESP 17; TEMP 98.2; O2SAT 100
== END 2025-04-03 16:40 | disposition home or self-care (01) | DRG 420 ==
LOC: ER 15:02 → OVERFLOW 19:33 → CENTRAL 04-02 11:50
PROVIDERS: ADMIT Hospitalist; ATTEND Hospitalist
DX: E11.00 Type 2 diabetes mellitus with hyperosmolarity without nonketotic hyperglycemic-hyperosmolar coma (NKHHC) (principal); N17.0 Acute kidney failure with tubular necrosis; E11.22 Type 2 diabetes mellitus with diabetic chronic kidney disease; N18.9 Chronic kidney disease, unspecified; I12.9 Hypertensive chronic kidney disease with stage 1 through stage 4 chronic kidney disease, or unspecified chronic kidney disease; E78.5 Hyperlipidemia, unspecified; Z88.8 Allergy status to other drugs, medicaments and biological substances
CPT/HCPCS: 36415; 80048; 80307; 80320; 81001; 82962; 83036; 85025; 96361; 96374; G0378; J1815